=== PATIENT | male | born 1985 | race Caucasian/White ===

== ENCOUNTER → 2016-08-21 | Outpatient (CLI) | payer OTHER ==
--- NOTE | 2016-08-21 10:20 | DX ---
Left Ankle, Three Views 9:54 a.m. Clinical History: 31-year-old male with pain and swelling in the left ankle after an injury sustained 2 days ago while snowboarding. Rule out fracture. Comparison Study: None. Findings: There is no fracture, dislocation, or mortise asymmetry. The talar dome is well-contoured. The subtalar joint is normal. Impression: There is no acute osseous abnormality.
== END ==
LOC: CIMAGING 09:32 → EDSTATUS 09:45 → CIMAGING 09:45
PROVIDERS: ATTEND Family Medicine
DX: M25.572 Pain in left ankle and joints of left foot (principal); M79.89 Other specified soft tissue disorders
CPT/HCPCS: 73610-PO

== ENCOUNTER → 2017-07-18 | Outpatient (CLI) | payer OTHER | LOC: CIMAGING 16:03 | PROVIDERS: ATTEND Family Medicine | DX: M54.5 Low back pain (principal) | CPT/HCPCS: 72100-PO; 73502-PO ==

== ENCOUNTER 2017-09-02 17:31 | Emergency (ER) | payer OTHER ==
[2017-09-02 17:46] VITALS: RESP 16; TEMP 99.1
--- NOTE | 2017-09-02 18:17 | EDPHY ---
H & P Time Seen by Provider: 09/02/17 17:47 HPI/ROS: Chief complaint. Left leg injury HPI. Patient is a 32-year-old male was snowboarding today and went forward over the snowboard. He felt a pop. He realize that he could no longer point his toe downward. He has pain in the posterior aspect of his ankle. No other injuries. He has had previous ankle fracture but no injury to the Achilles tendon. Increased pain with movement. ROS Constitutional. no fever/chills, no weakness Eyes. no problems with vision ENT. no sore throat, no nasal drainage Cardiovascular. no chest pain Respiratory. no shortness of breath, no cough Abdominal. no abdominal pain, no nausea/vomiting, no diarrhea . no problems urinating MS. Posterior left ankle pain Skin. no rash Lymph. no swollen glands Neuro. no headache, no dizziness, no difficulty walking or with speech Past Medical/Surgical History: Healthy Social History: Single, nonsmoker, no alcohol Smoking Status: Never smoked Physical Exam: General Appearance: Alert well-developed male mild distress vital signs are stable Eyes: Pupils equal and round no pallor or injection. ENT, Mouth: Mucous membranes are moist. Respiratory: There are no retractions, lungs are clear to auscultation. Cardiovascular: Regular rate and rhythm. Gastrointestinal: Abdomen is soft and nontender, no masses, bowel sounds normal. Neurological: Awake and alert, sensory and motor exams grossly normal. Skin: Warm and dry, no rashes. Musculoskeletal: Neck is supple nontender. Extremities limited plantar flexion with the left foot. Palpable gap in the Achilles tendon posteriorly left ankle. Distal motor vascular sensitivity intact. No tenderness or swelling to the ankle joint Psychiatric: Patient is oriented X 3, there is no agitation. Constitutional: Initial Vital Signs Temperature (C) 37.3 C 09/02/17 17:38 Heart Rate 69 09/02/17 17:38 Respiratory Rate 16 09/02/17 17:38 Blood Pressure 129/79 H 09/02/17 17:38 O2 Sat (%) 97 09/02/17 17:38 O2 Delivery Mode Room Air Allergies/Adverse Reactions: No Known Allergies Allergy (Unverified 09/02/17 17:43) Home Medications: Medication Instructions Recorded NK [No Known Home Meds] 09/02/17 Medical Decision Making Procedures: Patient is placed in a long leg posterior splint and placed on crutches. Post splint application checked by me and is found have good anatomic position distal motor vascular sensitivity to be intact ED Course/Re-evaluation: Patient remained stable on re-evaluation. He and I discussed treatment plan including criteria for return importance of follow-up and further evaluation. He expresses understanding and agreement I consulted and discussed case with Dr. Salgado, orthopedics will see the patient in the office tomorrow Differential Diagnosis: I considered fracture, sprain, Achilles tendon tear both complete and partial Departure - Departure Disposition: Home, Routine, Self-Care Clinical Impression: Achilles tendon rupture Qualifiers: Encounter type: initial encounter Laterality: left Qualified Code(s): S86.012A - Strain of left Achilles tendon, initial encounter Condition: Good Instructions: Achilles Tendon Rupture (ED), Achilles Tendon Repair (DC) Additional Instructions: Ice and elevation next 24-48 hours. Splint and crutches until seen by orthopedist. Call Dr. Salgado tomorrow morning to arrange follow-up and further evaluation. Tylenol or ibuprofen as needed for discomfort Referrals: Eloisa Thao [Primary Care Provider] - As per Instructions Autumn Salgado MD [Medical Doctor] - 1-2 days without fail
[2017-09-02 19:15] VITALS: BP 128/68; PULSE 68; O2SAT 98
== END 2017-09-02 19:16 | disposition home or self-care (01) ==
LOC: CED 17:31
DX: S86.012A Strain of left Achilles tendon, initial encounter (principal); X58.XXXA Exposure to other specified factors, initial encounter; Y99.8 Other external cause status; Y93.23 Activity, snow (alpine) (downhill) skiing, snowboarding, sledding, tobogganing and snow tubing